=== PATIENT | male | born 1950 | race Caucasian/White ===

== ENCOUNTER → 2020-11-01 02:46 | Outpatient (CLI) | payer MEDICARE, BC, SELFPAY ==
[2020-11-01 18:15] LABS: SARS-CoV-2 RNA PCR Negative
== END ==
PROVIDERS: PCP Internal Medicine; Visit Provider Internal Medicine Gastroenterology
DX: Z01.812 Encounter for preprocedural laboratory examination (principal); Z20.822 Contact with and (suspected) exposure to COVID-19
CPT/HCPCS: C9803; U0003; U0005

== ENCOUNTER 2020-11-04 01:36 | Day surgery (SDC) | payer MEDICARE, BC, SELFPAY ==
[2020-10-22 13:13] VITALS: BMI 26.9
[2020-11-04 08:46] VITALS: BP 139/85; PULSE 95; RESP 18; TEMP 36.3; O2SAT 95
[2020-11-04] MEDS: LACTATED RINGERS 1,000 ML 150 ML IV CONT (08:58)
--- NOTE | 2020-11-04 09:02 | WPDANESEPPF ---
Anes - Initial Pre Proc Eval Procedure: Operation Date: 11/04/20 10:00 Proposed Procedures p Screening Colonoscopy - Brody Dill MD Date/Time: 11/04/20 09:02 Surgeon: Brody Dill MD Pre Op Diagnosis: hx colon polyps Patient Data Age: 70 Gender: M Height: 1.7 m Weight: 77.4 kg Last Vital Signs Temp 36.3 C L 11/04/20 08:46 Pulse 95 11/04/20 08:46 Resp 18 11/04/20 08:46 BP 139/85 11/04/20 08:46 Pulse Ox 95 11/04/20 08:46 Allergies Allergy/AdvReac Type Severity Reaction Status Date / Time hydromorphone Allergy Unknown intolerance Verified 11/04/20 08:45 morphine Allergy Unknown bad Verified 11/04/20 08:45 feeling Home Medications Medication Instructions Recorded Confirmed Type aspirin 325 mg tablet 325 mg PO DAILY 10/06/19 11/04/20 History docusate sodium 50 mg capsule 50 mg PO DAILY 10/06/19 11/04/20 History multivitamin 1 tablet PO DAILY 10/06/19 11/04/20 History celecoxib 200 mg capsule See Rx Instructions .ROUTE 07/04/20 11/04/20 Rx .COMPLEX #180 cap omeprazole 20 mg capsule,delayed See Rx Instructions .ROUTE 07/04/20 11/04/20 Rx release .COMPLEX #180 cap alprazolam 0.25 mg tablet 0.25 mg PO TID PRN #270 tablet 10/01/20 11/04/20 Rx metoprolol succinate 25 mg 25 mg PO DAILY #90 tablet 10/01/20 11/04/20 Rx tablet,extended release 24 hr rosuvastatin 20 mg tablet 20 mg PO DAILY #90 tablet 10/01/20 11/04/20 Rx sodium,potassium,mag sulfates 17.5 See Rx Instructions PO .COMPLEX 10/09/20 11/04/20 Rx gram-3.13 gram-1.6 gram oral soln #354 ml Patient hx anesthesia problems: none Family hx anesthesia problems: none PMFSH Past Medical History Medical History (Updated 11/04/20 @ 09:05 by Marco A Blackburn MD) Benign essential hypertension Blindness of left eye BPH (benign prostatic hyperplasia) CAD (coronary artery disease) History of malignant melanoma of eye History of pancreatic cancer Melanoma of scalp Surgical History Surgical History (Updated 11/04/20 @ 09:05 by Marco A Blackburn MD) History of splenectomy S/P CABG (coronary artery bypass graft) Family History Family History Mother Family history of heart disease in male family member before age 55 Social History Social History (Updated 10/18/20 @ 09:43 by Aleida Drew MA) Smoking packs per day: 2 Smoking cigarettes per day: 40.0 Years smoked: 20 Smoking pack-years: 40.00 Tobacco type: cigarettes Second hand tobacco smoke exposure: Yes Smoking end date: 05/31/74 Alcohol intake: current Drinks per week: 7 Alcohol use details: BEER Substance use: never Substance use type: does not use Living arrangements: with family Spiritual care concerns: No Anes - Eval Final PreProcedure Day of Procedure 11/04/20 09:02 Patient weight: obese Heart: regular rate and rhythm Lungs: clear to auscultation and normal air movement Airway: Mallampati scale class II Neurological: alert and oriented Last oral intake: >/= 8 hours ASA classification: III Emergent: no Anesthetic plan: proceed Anesthesia type and monitoring: general GIVS Informed Consent: The patient's anesthetic plan and its attendant risks and benefits were discussed with the patient/family/POA. Questions were solicited and answers provided to the satisfaction of the patient/family/POA.
--- NOTE | 2020-11-04 09:28 | WPDGICN ---
Assessment and Plan Assessment and plan (1) History of colon polyps: Code(s): Z86.010 - Personal history of colonic polyps Status: Acute Assessment and Plan: Patient has a history of colon polyps in 2006. He presents today for follow-up colonoscopy. (2) History of pancreatic cancer: Code(s): Z85.07 - Personal history of malignant neoplasm of pancreas Status: Acute Assessment and Plan: patient has a distant history of pancreatic cancer resected in felt to be cured. Continues follow-up at [facility]. Resection was approximately 7 years ago. GI Consult Note Consult date/time: 11/04/20 09:28 HPI: Quinton Amaya Jr. is a 70 year old male Presents for screening colonoscopy. Patient has a history of colon polyps 2006. Patient's current weight appetite bowel movements are normal. He denies abdominal pain. Has had no bleeding. Past medical history is significant for pancreatic cancer resected approximately 7 years ago. Found incidentally on a CT scan. There has been no evidence this brought her metastases. He continues to see [facility] for follow-up. 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 Review of Systems Review of Systems: All systems reviewed & are unremarkable except as noted in HPI and below PMFSH Past Medical History Medical History (Updated 11/04/20 @ 09:30 by Brody Dill MD) Benign essential hypertension Blindness of left eye BPH (benign prostatic hyperplasia) CAD (coronary artery disease) History of malignant melanoma of eye History of pancreatic cancer Melanoma of scalp Surgical History Surgical History (Updated 11/04/20 @ 09:05 by Marco A Blackburn MD) History of splenectomy S/P CABG (coronary artery bypass graft) Family History Family History Mother Family history of heart disease in male family member before age 55 Social History Social History (Updated 10/18/20 @ 09:43 by Aleida Drew MA) Smoking packs per day: 2 Smoking cigarettes per day: 40.0 Years smoked: 20 Smoking pack-years: 40.00 Tobacco type: cigarettes Second hand tobacco smoke exposure: Yes Smoking end date: 05/31/74 Alcohol intake: current Drinks per week: 7 Alcohol use details: BEER Substance use: never Substance use type: does not use Living arrangements: with family Spiritual care concerns: No Meds Home Medications and Allergies Home Medications Medication Instructions Recorded Confirmed Type aspirin 325 mg tablet 325 mg PO DAILY 10/06/19 11/04/20 History docusate sodium 50 mg capsule 50 mg PO DAILY 10/06/19 11/04/20 History multivitamin 1 tablet PO DAILY 10/06/19 11/04/20 History celecoxib 200 mg capsule See Rx Instructions .ROUTE 07/04/20 11/04/20 Rx .COMPLEX #180 cap omeprazole 20 mg capsule,delayed See Rx Instructions .ROUTE 07/04/20 11/04/20 Rx release .COMPLEX #180 cap alprazolam 0.25 mg tablet 0.25 mg PO TID PRN #270 tablet 10/01/20 11/04/20 Rx metoprolol succinate 25 mg 25 mg PO DAILY #90 tablet 10/01/20 11/04/20 Rx tablet,extended release 24 hr rosuvastatin 20 mg tablet 20 mg PO DAILY #90 tablet 10/01/20 11/04/20 Rx sodium,potassium,mag sulfates 17.5 See Rx Instructions PO .COMPLEX 10/09/20 11/04/20 Rx gram-3.13 gram-1.6 gram oral soln #354 ml Allergies Allergy/AdvReac Type Severity Reaction Status Date / Time hydromorphone Allergy Unknown intolerance Verified 11/04/20 08:45 morphine Allergy Unknown bad Verified 11/04/20 08:45 feeling Vital Signs Vital Signs - 24 hr 11/04/20 08:46 Temperature 97.3 F L Pulse Rate 95 Respiratory Rate 18 Blood Pressure 139/85 Pulse Oximetry 95 Exam Narrative: Exam Narrative: Physical exam reveals patient to be alert. Vital signs stable. HEENT exam is unremarkable. Patient is anicteric. Lungs are clear to auscultation and percussion.
[2020-11-04 09:57] VITALS: BP 104/66; PULSE 78; RESP 18; O2SAT 97
[2020-11-04 10:07] VITALS: BP 107/68; PULSE 74; RESP 22; O2SAT 96
[2020-11-04 10:17] VITALS: BP 138/89; PULSE 77; RESP 18; O2SAT 100
== END 2020-11-04 10:28 | disposition home or self-care (01) ==
PROVIDERS: PCP Internal Medicine; Visit Provider Internal Medicine Gastroenterology
PROC: 0DJD8ZZ Inspection of Lower Intestinal Tract, Via Natural or Artificial Opening Endoscopic (ICD-10-PCS; CPT 45378; principal; 2020-11-04 10:00)
DX: Z12.11 Encounter for screening for malignant neoplasm of colon (principal); K64.8 Other hemorrhoids; Z86.010 Personal history of colon polyps; Z85.07 Personal history of malignant neoplasm of pancreas; I10 Essential (primary) hypertension; I25.10 Atherosclerotic heart disease of native coronary artery without angina pectoris; N40.0 Benign prostatic hyperplasia without lower urinary tract symptoms; Z85.820 Personal history of malignant melanoma of skin; Z95.1 Presence of aortocoronary bypass graft; Z90.81 Acquired absence of spleen
CPT/HCPCS: G0105; J2704; J7120